=== PATIENT | male | born 1970 | race Caucasian/White ===

== ENCOUNTER 2020-11-01 14:56 | Inpatient (IN) | payer BC, OTHER ==
[~2020-11-01] VITALS: Ht 185.4 cm; Wt 119.1 kg
--- NOTE | 2020-11-01 15:05 | NUR ---
LUCY FROM . PT C/O OF CHEST PAIN RADIATING TO HIS SHOULDER BLADES LAST NIGHT. REPORTS DYSPNEA ON EXERTION AND LEFT ANKLE PAIN SINCE SUNDAY. EKG SHOWED INVERTED T WAVES WHICH SENT HIM TO ED. WAS GIVEN ASA, NITRO AND 100MCG FENTANYL. CURRENTLY RESTING IN BED, ATTACTHED TO MONITORS, CALL LIGHT WITHIN REACH. MD AT BEDSIDE.
[2020-11-01 15:33] LABS: BASOPHILS % (AUTO) 0 % (0-1); EOSINOPHILS % (AUTO) 3 % (1-7); LYMPHOCYTES % (AUTO) 18 % (22-44); MEAN CORPUSCULAR HEMOGLOBIN 29.9 pg (27.5-34.5); MEAN CORPUSCULAR HGB CONC 33.9 g/dL (33.2-36.2); MEAN PLATELET VOLUME 8.4 fL (7.4-10.4); MONOCYTES % (AUTO) 7 % (2-9); NEUTROPHILS % (AUTO) 71 % (42-75); PLATELET COUNT 289 x10^3/uL (130-400); RED BLOOD COUNT 4.66 x10^6/uL (4.38-5.82); RED CELL DISTRIBUTION WIDTH 13.8 % (9.4-14.8)
[2020-11-01 15:46] LABS: ALANINE AMINOTRANSFERASE 61 U/L (12-78); ALBUMIN 3.1 g/dL (3.4-5.0); ANION GAP 9 mmol/L (5-15); CALCIUM 9.3 mg/dL (8.5-10.1); CHLORIDE 106 mmol/L (98-107); CREATININE 1.24 mg/dL (0.7-1.3); MD NO
[2020-11-01 15:50] LABS: ALKALINE PHOSPHATASE 141 U/L (45-117); BILIRUBIN,TOTAL 0.8 mg/dL (0.2-1.0); TOTAL PROTEIN 7.9 g/dL (6.4-8.2)
--- NOTE | 2020-11-01 16:22 | NUR ---
PT AMBULATED TO BATHROOM. TOLERATING WELL.
--- NOTE | 2020-11-01 16:25 | NUR ---
PT BACK IN BED FROM BATHROOM, ATTACHED TO MONITORS, VSS. APPLICATION DEVELOPER AT BEDSIDE PERFORMING EKG. PT URINATED, UNMEASURED.
[2020-11-01] MEDS ORDERED: HEPARIN 25,000 UNITS/250ML PMX 250 ML IV PRN (16:30)
[2020-11-01] MEDS ORDERED: HEPARIN 5,000 UNITS/ML, 1ML IV ONE (16:30)
[2020-11-01] MEDS ORDERED: ASPIRIN 81 MG TABLET CHEW PO ONE (16:30)
[2020-11-01] MEDS ORDERED: ASPIRIN 81 MG TABLET CHEW ONE (16:38)
[2020-11-01] MEDS ORDERED: HEPARIN 5,000 UNITS/ML, 1ML ONE (16:38)
[2020-11-01] MEDS ORDERED: HEPARIN 25,000 UNITS/250ML PMX 250 ML ONE (16:38)
[2020-11-01] MEDS ORDERED: morphine SULFATE 10 MG/ML, 1ML IVPush PRN (17:00)
[2020-11-01] MEDS ORDERED: NITROGLYCERIN 0.4 MG BOTTLE (25 TABS) SL PRN (17:00)
[2020-11-01] MEDS ORDERED: ONDANSETRON ODT 4 MG PO PRN (17:00)
[2020-11-01] MEDS ORDERED: ONDANSETRON 2MG/ML, 2ML IVPush PRN (17:00)
--- NOTE | 2020-11-01 17:21 | NUR ---
NS 100ML/HR
--- NOTE | 2020-11-01 17:21 | NUR ---
GAVE REPORT TO MARITA ZUNIGA
[2020-11-01] MEDS ORDERED: SODIUM CHLORIDE 0.9% 1,000 ML IV ONE (17:30)
[2020-11-01 18:25] VITALS: BP 146/88
[2020-11-01] MEDS: SODIUM CHLORIDE 0.9% 1,000 ML IV SCH (18:33)
[2020-11-01 20:57] VITALS: BP 114/78
[2020-11-01] MEDS ORDERED: ATORVASTATIN 80 MG TABLET PO SCH (21:00)
[2020-11-01] MEDS ORDERED: LEVO88CA4 PO (21:37)
[2020-11-01] MEDS ORDERED: OMEP40CA42 PO (21:37)
[2020-11-01] MEDS ORDERED: NIAC500T26 PO (21:37)
[2020-11-01 23:14] LABS: TROPONIN I 0.938 ng/mL (0.000-0.045)
[2020-11-01] MEDS: HEPARIN 5,000 UNITS/ML, 1ML IV PRN (23:57)
[2020-11-02] MEDS ORDERED: OMNIPAQUE 350 MG/ML, 75ML BOTTLE ONE (00:04)
[2020-11-02 00:42] VITALS: BP 116/83
[2020-11-02] MEDS: ACETAMINOPHEN 325 MG TABLET PO PRN ×2 (00:50→06:37)
[2020-11-02] MEDS ORDERED: ASPIRIN 325 MG TABLET PO SCH (06:00)
[2020-11-02 06:15] LABS: CHOL/HDL RATIO 4.9; LDL/HDL RATIO 2.8 (0.5-3.0)
[2020-11-02] MEDS: HEPARIN 5,000 UNITS/ML, 1ML IV PRN (06:34)
[2020-11-02 06:51] VITALS: BP 112/75
[2020-11-02] MEDS: SODIUM CHLORIDE 0.9% 1,000 ML IV SCH (07:18)
[2020-11-02] MEDS ORDERED: COLCHICINE 0.6 MG CAPSULE PO SCH (10:00)
[2020-11-02] MEDS ORDERED: KETOROLAC 30 MG/1 ML IVPush ONE (10:00)
[2020-11-02] MEDS ORDERED: ASPI81TA45 PO (10:56)
[2020-11-02] MEDS ORDERED: ATOR-2 PO (10:56)
[2020-11-02] MEDS ORDERED: NITR0.4T28 SL (10:56)
[2020-11-02] MEDS ORDERED: COLC0.6C3 PO (10:56)
[2020-11-02] MEDS ORDERED: REGADENOSON 0.4 MG/5 ML SYRINGE ONE (11:21)
[2020-11-02] MEDS ORDERED: INDO25CA22 PO (14:28)
== END 2020-11-02 14:40 | disposition home or self-care (01) | DRG 282 ==
LOC: ED 17:16 → EDIP 17:29 → 5SO 17:32 → DCLOUNGE 11-02 14:27
PROVIDERS: ADMIT Family Medicine; ATTEND Internal Medicine
DX: I21.4 Non-ST elevation (NSTEMI) myocardial infarction (principal); E03.9 Hypothyroidism, unspecified; G47.33 Obstructive sleep apnea (adult) (pediatric); E66.9 Obesity, unspecified; Z68.34 Body mass index [BMI] 34.0-34.9, adult; Z80.0 Family history of malignant neoplasm of digestive organs; Z80.3 Family history of malignant neoplasm of breast; Z88.0 Allergy status to penicillin
CPT/HCPCS: 36415; 71045; 71275; 78452; 80053; 80061; 83880; 84443; 84484; 84550; 85025; 85520; 93005; 93017; 93306; 93356; G0378; J1644; J1885; J2785; Q9967; A9502; J7030

== ENCOUNTER 2021-03-17 14:44 | Inpatient (IN) | payer BC ==
[~2021-03-17] VITALS: Ht 185.4 cm; Wt 106.5 kg
[~2021-03-17 14:44] MED LIST: ASPI81TA45 PO; ATOR-2 PO; COLC0.6C3 PO; INDO25CA22 PO; LEVO88CA4 PO; NIAC500T26 PO; NITR0.4T28 SL; OMEP40CA8 PO
[2021-03-17] MEDS ORDERED: ACETAMINOPHEN 500 MG TABLET PO ONE (15:30)
[2021-03-17 15:41] LABS: BASOPHILS % (AUTO) 0 % (0-1); EOSINOPHILS % (AUTO) 0 % (1-7); LYMPHOCYTES % (AUTO) 25 % (22-44); MEAN CORPUSCULAR HEMOGLOBIN 29.3 pg (27.5-34.5); MEAN CORPUSCULAR HGB CONC 33.3 g/dL (33.2-36.2); MEAN PLATELET VOLUME 9.6 fL (7.4-10.4); MONOCYTES % (AUTO) 4 % (2-9); NEUTROPHILS % (AUTO) 70 % (42-75); PLATELET COUNT 149 x10^3/uL (130-400); RED BLOOD COUNT 5.48 x10^6/uL (4.38-5.82); RED CELL DISTRIBUTION WIDTH 13.9 % (9.4-14.8)
[2021-03-17 15:52] LABS: ALANINE AMINOTRANSFERASE 43 U/L (12-78); ALBUMIN 3.8 g/dL (3.4-5.0); ANION GAP 11 mmol/L (5-15); CALCIUM 9.1 mg/dL (8.5-10.1); CHLORIDE 99 mmol/L (98-107); CREATININE 1.31 mg/dL (0.7-1.3)
[2021-03-17 15:54] LABS: ALKALINE PHOSPHATASE 82 U/L (45-117); BILIRUBIN,TOTAL 0.6 mg/dL (0.2-1.0); TOTAL PROTEIN 8.3 g/dL (6.4-8.2)
[2021-03-17] MEDS ORDERED: ACETAMINOPHEN 500 MG TABLET ONE (16:18)
--- NOTE | 2021-03-17 16:30 | NUR ---
PT TO ROOM 38 W/ C/O SOB, COUGH, FEVERS, CONGESTION X 1 WEEK. PT STATES HE WAS DX COVID + ON 03/13. [facility] RESTING ON [email or web address]. NADN. MONITORS APPLIED. VSS. CALL LIGHT IN REACH.
--- NOTE | 2021-03-17 16:50 | NUR ---
PT CHART REVIEWED AND PLACED FOR RECHECK.
--- NOTE | 2021-03-17 16:59 | NUR ---
PT RESTING ON GURNEY. NADN. [place].
[2021-03-17] MEDS ORDERED: IBUPROFEN 600 MG TABLET ONE (17:09)
[2021-03-17] MEDS ORDERED: IBUPROFEN 600 MG TABLET PO ONE (17:30)
--- NOTE | 2021-03-17 17:35 | NUR ---
PT RESTING ON GURNEY. NADN. [place].
[2021-03-17] MEDS ORDERED: IBUPROFEN 600 MG TABLET PO PRN (19:00)
[2021-03-17] MEDS ORDERED: SODIUM CHLORIDE 0.9% 1,000 ML IV SCH (19:00)
[2021-03-17] MEDS ORDERED: PHARMACY MAY ADJ FOR RENAL FX MC PRN (19:00)
[2021-03-17] MEDS ORDERED: LIDODERM 5% PATCH TD PRN (19:00)
[2021-03-17] MEDS ORDERED: DOCUSATE 100 MG CAPSULE PO PRN (19:00)
[2021-03-17 19:08] LABS: TROPONIN I < 0.015 ng/mL (0.000-0.045)
[2021-03-17 19:10] LABS: D-DIMER 0.8 ug/mlFEU (0.00-0.52); INTERNATIONAL NORMALIZED RATIO 0.99 (0.93-1.1); PROTHROMBIN TIME 10.6 Seconds (9.6-11.5)
[2021-03-17 19:30] VITALS: BP 133/88
[2021-03-17] MEDS: DEXAMETHASONE 4 MG/ML, 1ML IVPush SCH (20:38)
[2021-03-17] MEDS: ASCORBIC ACID 500 MG TABLET PO SCH (20:39)
[2021-03-17] MEDS: AZITHROMYCIN 500 MG in SODIUM CHLORIDE 0.9% 250 ML IV SCH (20:41)
[2021-03-17] MEDS: MELATONIN 5 MG TABLET PO SCH (20:41)
[2021-03-17] MEDS: ENOXAPARIN 40 MG/0.4 ML SQ SCH (20:42)
[2021-03-17] MEDS ORDERED: REMDESIVIR 200 MG in SODIUM CHLORIDE 0.9% 250 ML IVPB ONE (21:00)
[2021-03-18] MEDS: DOXYCYCLINE 100 MG in DEXTROSE 5% 250 ML IV SCH ×2 (00:27→12:18)
[2021-03-18 01:52] VITALS: BP 120/75
[2021-03-18 06:13] LABS: BASOPHILS % (AUTO) 0 % (0-1); EOSINOPHILS % (AUTO) 0 % (1-7); LYMPHOCYTES % (AUTO) 23 % (22-44); MEAN CORPUSCULAR HEMOGLOBIN 29.9 pg (27.5-34.5); MEAN CORPUSCULAR HGB CONC 33.9 g/dL (33.2-36.2); MEAN PLATELET VOLUME 10.1 fL (7.4-10.4); MONOCYTES % (AUTO) 4 % (2-9); NEUTROPHILS % (AUTO) 73 % (42-75); PLATELET COUNT 144 x10^3/uL (130-400); RED BLOOD COUNT 4.99 x10^6/uL (4.38-5.82); RED CELL DISTRIBUTION WIDTH 13.8 % (9.4-14.8)
[2021-03-18 06:15] LABS: HCT (SEDRATE) 44.8 % (39.2-51.8)
[2021-03-18 06:21] LABS: ALBUMIN 3.1 g/dL (3.4-5.0); ANION GAP 6 mmol/L (5-15); CALCIUM 8.3 mg/dL (8.5-10.1); CHLORIDE 106 mmol/L (98-107)
[2021-03-18 06:31] LABS: ALANINE AMINOTRANSFERASE 35 U/L (12-78); ALKALINE PHOSPHATASE 67 U/L (45-117); BILIRUBIN,TOTAL 0.4 mg/dL (0.2-1.0); CREATINE KINASE, TOTAL 136 U/L (39-308); TOTAL PROTEIN 7.1 g/dL (6.4-8.2)
[2021-03-18 08:13] VITALS: BP 121/76
[2021-03-18] MEDS: ZINC SULFATE 220 MG CAPSULE PO SCH (08:41)
[2021-03-18] MEDS: CHOLECALCIFEROL 5,000u TAB PO SCH (08:41)
[2021-03-18] MEDS: ASCORBIC ACID 500 MG TABLET PO SCH ×2 (08:41→20:40)
[2021-03-18] MEDS: DEXAMETHASONE 4 MG/ML, 1ML IVPush SCH (08:41)
[2021-03-18] MEDS: ACETAMINOPHEN 325 MG TABLET PO PRN (09:18)
[2021-03-18] MEDS ORDERED: GUAIFENESIN 100 MG/5 ML, 10ML UDC PO PRN (13:30)
[2021-03-18 14:23] VITALS: BP 134/82
[2021-03-18] MEDS: ENOXAPARIN 40 MG/0.4 ML SQ SCH (18:29)
[2021-03-18] MEDS: AZITHROMYCIN 500 MG in SODIUM CHLORIDE 0.9% 250 ML IV SCH (20:09)
[2021-03-18 20:10] VITALS: BP 141/67
[2021-03-18] MEDS: MELATONIN 5 MG TABLET PO SCH (20:41)
[2021-03-18] MEDS: REMDESIVIR 100 MG in SODIUM CHLORIDE 0.9% 250 ML IVPB SCH (22:06)
[2021-03-19] MEDS: DOXYCYCLINE 100 MG in DEXTROSE 5% 250 ML IV SCH ×3 (00:25→23:52)
[2021-03-19 00:27] VITALS: BP 112/74
[2021-03-19 06:02] LABS: HCT (SEDRATE) 43.1 % (39.2-51.8)
[2021-03-19 06:12] LABS: CHLORIDE 109 mmol/L (98-107); D-DIMER 0.69 ug/mlFEU (0.00-0.52); INTERNATIONAL NORMALIZED RATIO 0.95 (0.93-1.1); PROTHROMBIN TIME 10.2 Seconds (9.6-11.5)
[2021-03-19 06:23] LABS: C-REACTIVE PROTEIN, QUANT 2.7 mg/dL (0.02-0.49)
[2021-03-19 06:25] LABS: ALANINE AMINOTRANSFERASE 32 U/L (12-78); ALBUMIN 2.8 g/dL (3.4-5.0); ALKALINE PHOSPHATASE 65 U/L (45-117); ANION GAP 7 mmol/L (5-15); BILIRUBIN,TOTAL 0.3 mg/dL (0.2-1.0); CALCIUM 8.7 mg/dL (8.5-10.1); CREATININE 1.13 mg/dL (0.7-1.3); TOTAL PROTEIN 6.6 g/dL (6.4-8.2)
[2021-03-19] MEDS: ASCORBIC ACID 500 MG TABLET PO SCH ×2 (08:37→21:46)
[2021-03-19] MEDS: ACETAMINOPHEN 325 MG TABLET PO PRN (08:37)
[2021-03-19] MEDS: CHOLECALCIFEROL 5,000u TAB PO SCH (08:37)
[2021-03-19] MEDS: ZINC SULFATE 220 MG CAPSULE PO SCH (08:37)
[2021-03-19] MEDS: DEXAMETHASONE 4 MG/ML, 1ML IVPush SCH (08:37)
[2021-03-19 08:38] VITALS: BP 122/77
[2021-03-19 13:17] VITALS: BP 107/76
[2021-03-19] MEDS: AZITHROMYCIN 500 MG in SODIUM CHLORIDE 0.9% 250 ML IV SCH (18:24)
[2021-03-19] MEDS: ENOXAPARIN 40 MG/0.4 ML SQ SCH (18:24)
[2021-03-19 19:46] VITALS: BP 129/81
[2021-03-19] MEDS: MELATONIN 5 MG TABLET PO SCH (21:46)
[2021-03-19] MEDS: REMDESIVIR 100 MG in SODIUM CHLORIDE 0.9% 250 ML IVPB SCH (21:46)
[2021-03-20 00:50] VITALS: BP 124/60
[2021-03-20 05:38] LABS: HCT (SEDRATE) 40.7 % (39.2-51.8)
[2021-03-20 05:46] LABS: CHLORIDE 108 mmol/L (98-107)
[2021-03-20 05:52] LABS: ALANINE AMINOTRANSFERASE 31 U/L (12-78); ALBUMIN 2.7 g/dL (3.4-5.0); ALKALINE PHOSPHATASE 62 U/L (45-117); ANION GAP 6 mmol/L (5-15); BILIRUBIN,TOTAL 0.4 mg/dL (0.2-1.0); CALCIUM 8.4 mg/dL (8.5-10.1); CREATININE 1.02 mg/dL (0.7-1.3); TOTAL PROTEIN 6.5 g/dL (6.4-8.2)
[2021-03-20 06:04] LABS: C-REACTIVE PROTEIN, QUANT 1.2 mg/dL (0.02-0.49)
[2021-03-20 07:40] VITALS: BP 113/76
[2021-03-20] MEDS: ZINC SULFATE 220 MG CAPSULE PO SCH (08:49)
[2021-03-20] MEDS: CHOLECALCIFEROL 5,000u TAB PO SCH (08:49)
[2021-03-20] MEDS: ASCORBIC ACID 500 MG TABLET PO SCH (08:49)
[2021-03-20] MEDS: DEXAMETHASONE 4 MG/ML, 1ML IVPush SCH (08:49)
[2021-03-20] MEDS ORDERED: ASCO500T9 PO (12:04)
[2021-03-20] MEDS ORDERED: MELA5TAB14 PO (12:04)
[2021-03-20] MEDS ORDERED: CHOL500045 PO (12:04)
[2021-03-20] MEDS ORDERED: ZINC220C8 PO (12:04)
[2021-03-20] MEDS: DOXYCYCLINE 100 MG in DEXTROSE 5% 250 ML IV SCH (12:09)
[2021-03-20 13:59] VITALS: BP 119/68
== END 2021-03-20 18:23 | disposition home or self-care (01) | DRG 177 ==
LOC: ED 17:24 → EDIP 18:19 → 3N 18:46
PROVIDERS: ADMIT Family Medicine; ATTEND Family Medicine
PROC: XW033E5 Introduction of Remdesivir Anti-infective into Peripheral Vein, Percutaneous Approach, New Technology Group 5 (ICD-10-PCS; principal; 2021-03-17)
DX: U07.1 COVID-19 (principal); J12.82 Pneumonia due to coronavirus disease 2019; J96.01 Acute respiratory failure with hypoxia; J15.9 Unspecified bacterial pneumonia; N17.9 Acute kidney failure, unspecified; E03.9 Hypothyroidism, unspecified; I25.2 Old myocardial infarction; Z88.0 Allergy status to penicillin
CPT/HCPCS: 36415; 71045; 80053; 82550; 82728; 83605; 84145; 84484; 85025; 85379; 85384; 85610; 85651; 85730; 86140; 87040; 87635; 96374; 99283; G0378; J0456; J1100; J1650; J7060; J7030; J7050